=== PATIENT | female | born 1945 | race Caucasian/White ===

== ENCOUNTER → 2019-01-02 | Outpatient (CLI) | payer MEDICARE, MEDICAID ==
--- NOTE | 2019-01-02 13:42 | PCVCIMAG ---
EXAM: BILATERAL LOWER EXTREMITY ARTERIAL DUPLEX INDICATION: Peripheral Arterial Disease. Leg pain. FINDINGS: Right Leg: Common femoral profunda femoral arteries are patent. Previous [id number] popliteal artery bypass graft shows complete occlusion. Occlusion of the [place] superficial femoral artery and popliteal artery. Mid/distal popliteal artery refills. The anterior tibial, peroneal, and posterior tibial arteries show blunted arterial flow as would be expected but no obvious stenosis. Left Leg: Common femoral and profunda femoral arteries are patent. 70% stenosis mid [place] superficial femoral artery. 90% stenosis distal [place] superficial femoral artery. Popliteal artery is patent. The peroneal artery is occluded throughout. The anterior tibial and posterior tibial arteries are patent. IMPRESSION: Previous right [id number] popliteal artery bypass graft is occluded. Occlusion throughout the [place] right superficial femoral artery and upper right popliteal artery with refilling of the mid/distal right popliteal artery. 90% stenosis distal [place] left superficial femoral artery. Occlusion of the left peroneal artery. LOC:[id number]
== END | disposition home or self-care (01) ==
LOC: PCVCIMAG 10:42
PROVIDERS: ATTEND Podiatrist Foot & Ankle Surgery
DX: I70.203 Unspecified atherosclerosis of native arteries of extremities, bilateral legs (principal)
CPT/HCPCS: 93925

== ENCOUNTER → 2019-04-06 | Outpatient (CLI) | payer MEDICARE, MEDICAID ==
--- NOTE | 2019-04-06 10:31 | PCVCIMAG ---
APPROVED REPORT Laterality: Bilateral Indications Stenosis Doppler Spectral Velocity Analysis PSV / EDVPSV / EDV ECA (R) 68 / 8 cm/sECA (L) 77 / 8 cm/s dICA (R) 70 / 21 cm/sdICA (L) 55 / 14 cm/s Valentine (R) 98 / 21 cm/smICA (L) 63 / 15 cm/s pICA (R) 152 / 13 cm/spICA (L) 183 / 20 cm/s Bulb (R) 94 / 15 cm/sBulb (L) 111 / 18 cm/s dCCA (R) 135 / 18 cm/sdCCA (L) 183 / 27 cm/s mCCA (R) 91 / 11 cm/smCCA (L) 122 / 20 cm/s Vert (R) 32 / 10 cm/sVert (L) 58 / 9 cm/s ICA/CCA 1.13 ICA/CCA 1.00 Findings The right carotid bulb has moderate plaque. The right proximal internal carotid artery shows 40-50% stenosis. The right common carotid artery shows <40% stenosis. The right external carotid artery shows no significant stenosis. The left carotid bulb has moderate plaque. The left proximal internal carotid artery shows 40-50% stenosis. The left common carotid artery shows <40% stenosis. The left external carotid artery shows no significant stenosis. Conclusion 1. Bilateral internal carotid artery stenoses (40-50%). 2. Antegrade vertebral flow.
--- NOTE | 2019-04-06 13:42 | PCVCIMAG ---
EXAM: AORTOILIAC DUPLEX INDICATION: Peripheral arterial disease FINDINGS: AORTA: Suprarenal aorta measures maximum diameter of 2.8 cm. There is not a fusiform infrarenal aortic aneurysm. The infrarenal aorta measures maximum diameter of 2.0 cm. No aortic stenosis. RIGHT COMMON ILIAC ARTERY: Maximum diameter is 1.4 cm. No significant stenosis. RIGHT EXTERNAL ILIAC ARTERY: 70% stenosis distal vessel. LEFT COMMON ILIAC ARTERY: Maximum diameter is 1.3 cm. 70% stenosis distal vessel. LEFT EXTERNAL ILIAC ARTERY: 70% stenosis proximal vessel. IMPRESSION: No abdominal aortic aneurysm. Previous right common iliac artery stent maintaining satisfactory patency. 70% stenosis distal [place] right external iliac artery. 70% stenosis distal left common iliac artery and proximal left external iliac artery. LOC:[id number]
--- NOTE | 2019-04-06 13:44 | PCVCIMAG ---
EXAM: LEFT LOWER EXTREMITY ARTERIAL DUPLEX INDICATION: Peripheral Arterial Disease. Leg pain. Previous left SFA stent. Previous known occluded right femoral-popliteal artery bypass graft. FINDINGS: Left Leg: Common femoral and profunda femoral arteries are patent. Superficial femoral and popliteal artery patent. Peroneal artery is occluded throughout. The anterior tibial and posterior tibial arteries are patent. IMPRESSION: Occlusion of the left peroneal artery. Otherwise no flow limiting stenosis in the right lower extremity. Previous left superficial femoral artery site of intervention maintaining good patency. LOC:[id number]
== END | disposition home or self-care (01) ==
LOC: PCVCIMAG 08:28
PROVIDERS: ATTEND Nuclear Medicine Nuclear Cardiology
DX: I65.23 Occlusion and stenosis of bilateral carotid arteries (principal); I73.9 Peripheral vascular disease, unspecified; R09.89 Other specified symptoms and signs involving the circulatory and respiratory systems
CPT/HCPCS: 93880; 93926; 93978

== ENCOUNTER → 2019-04-09 | Outpatient (CLI) | payer MEDICARE, MEDICAID | END | disposition home or self-care (01) | LOC: PCVCCLINIC 11:00 | PROVIDERS: ATTEND Nuclear Medicine Nuclear Cardiology | DX: I73.9 Peripheral vascular disease, unspecified (principal); I10 Essential (primary) hypertension; E78.00 Pure hypercholesterolemia, unspecified; E11.9 Type 2 diabetes mellitus without complications; I77.1 Stricture of artery; E78.5 Hyperlipidemia, unspecified; Z87.891 Personal history of nicotine dependence; Z79.899 Other long term (current) drug therapy; Z88.0 Allergy status to penicillin; Z88.8 Allergy status to other drugs, medicaments and biological substances; Z88.1 Allergy status to other antibiotic agents | CPT/HCPCS: G0463 ==

== ENCOUNTER → 2019-06-02 | Outpatient (CLI) | payer MEDICARE, MEDICAID | END | disposition home or self-care (01) | LOC: PCVCCLINIC 10:00 | PROVIDERS: ATTEND Internal Medicine Cardiovascular Disease | DX: R07.9 Chest pain, unspecified (principal); E78.00 Pure hypercholesterolemia, unspecified; R06.09 Other forms of dyspnea; E11.51 Type 2 diabetes mellitus with diabetic peripheral angiopathy without gangrene; I10 Essential (primary) hypertension; I25.10 Atherosclerotic heart disease of native coronary artery without angina pectoris; K21.9 Gastro-esophageal reflux disease without esophagitis; E78.5 Hyperlipidemia, unspecified; E66.9 Obesity, unspecified; R94.31 Abnormal electrocardiogram [ECG] [EKG]; M19.90 Unspecified osteoarthritis, unspecified site; Z88.1 Allergy status to other antibiotic agents; Z88.0 Allergy status to penicillin; Z79.4 Long term (current) use of insulin; Z87.891 Personal history of nicotine dependence; Z95.5 Presence of coronary angioplasty implant and graft | CPT/HCPCS: 36415; 80061; 93005; G0463 ==